=== PATIENT | male | born 1940 | race Caucasian/White ===

== ENCOUNTER → 2017-07-09 | Outpatient (CLI) | payer OTHER, BC ==
[~2017-07-09] MED LIST: ADVIN25050 INH; ALBU1AER9 INH; AMLO5TAB2 PO; APIX1TAB3 PO; ATOR-22 PO; CLOP1TAB15 PO; CYAN3INJ; GLC500 PO; GLYB5TAB8 PO; ISOS20TA15 PO; LACT10CA3 PO; LOSA50TA6 PO; LVTUNK; METR250T PO
[2017-07-09 12:52] VITALS: BP 146/89; PULSE 69; TEMP 37.2; O2SAT 96
--- NOTE | 2017-07-09 13:37 | Radiation Oncology Follow-Up ---
Radiation Oncology Follow-Up Date of Visit Jul 09, 2017. 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 His AUA score was 5.5. Last year his score was 6. He completed and expanded prostate cancer index composite for clinical practice and gave a score of 2 of 12 and urinary incontinence symptoms. He gave a score of one of 12 urinary irritation symptoms. He gave a score of 5 of 12 in bowel symptoms. He gave a score of 8 of 12 and sexual symptoms. He gave a score of 3 of 12 and hormonal vitality symptoms. His total was 19 of 60. This was similar to last year. Our last PSA on record was 06/29/2015 and this was less than 0.010. He stated he did have a PSA last year in [place]. This unfortunately was mislabeled. He did not get a final reading. He has been noted to have a slow heartbeat. He was seen by his supply controller. The supply controller is referring him to another physician for possible pacemaker insertion. He stated that he is going to refuse a pacemaker. He feels that his heart rate has been similar over the past several years. He does not want to have any invasive intervention. Allergies Coded Allergies: Lisinopril (Verified Allergy, Unknown, 01/06/10) Home Medications Scheduled Amlodipine Besylate (Norvasc), 1 TAB PO DAILY Apixaban (Eliquis), 5 MG PO BID Atorvastatin (Lipitor), 20 MG PO DAILY Fluticasone Prop/Salmeterol (Advair Diskus 250/50 Mcg *), 1 PUFF INH HS Glyburide (Micronase), 5 MG PO BID Lactobacillus-Inulin (Culturelle), 1 CAP PO DAILY Levothyroxine (Levothroid Unknown Dose), 75 MCG DAILY Metformin Hcl (Glucophage *), 500 MG PO BID Scheduled PRN Albuterol (Proair Hfa), 1 PUFF INH PRN PRN for SOB/Wheezing Cyanocobalamin (Vitamin B-12 Inj), MONTHLY PRN for Documentation Metronidazole (Flagyl), 250 MG PO UD PRN for Documentation Review of Systems Gastrointestinal: Symptoms: Constipation, Diarrhea Oral: Symptoms: No Problems Respiratory: Other Respiratory: sometimes I can't inhale as deep as normal since on this [employer] Urinary: Symptoms: Nocturia Skin: Symptoms: No Problems Physical Exam Vital Signs Date Time Temp Pulse Resp B/P (MAP) Pulse Ox O2 Delivery O2 Flow Rate FiO2 07/09/17 12:52 37.2 69 20 146/89 96 Pain: Patient Pain Scale: 0 - 10 Initial Pain Intensity: 0.0 Fatigue: None General Appearance: no apparent distress Eyes: normal inspection, EOMI ENT: normal ENT inspection, hearing grossly normal Respiratory/Chest: lungs clear, no respiratory distress, no accessory muscle use Cardiovascular: regular rate, rhythm, no gallop, no murmur Abdomen: non tender, soft, no organomegaly Anal / Rectum: Normal sphincter tone. Prostate without nodules. No rectal masses and no rectal bleeding. Extremities: no pedal edema Neurologic/Psychiatric: no motor/sensory deficits, alert, normal mood/affect Skin: warm/dry Laboratory Studies Test 07/09/17 13:15 Assessment & Plan Plan: A PSA was drawn today prior to examination. He will be notified as to the results. We have previously discussed DEXA scanning. We are going to hold on scheduling this study. He currently is not interested in additional studies. He'll continue regular follow-up with his primary care physician. We asked him to return to our office in 1 year. He may call if he has new questions or concerns in the interim. Total Time In Follow-Up I spent 20 minutes speaking to the patient performing examination. I sent 15 minutes reviewing information in completing this note. Copy To Joel Brar M.D.
== END | disposition home or self-care (01) ==
LOC: C.ONC 12:33
PROVIDERS: ATTEND Physician Assistant Medical
DX: Z08 Encounter for follow-up examination after completed treatment for malignant neoplasm (principal); Z92.3 Personal history of irradiation; Z85.46 Personal history of malignant neoplasm of prostate